=== PATIENT | female | born 1965 | race Caucasian/White ===

== ENCOUNTER 2022-02-14 16:46 | Emergency (ER) | payer OTHER ==
[~2022-02-14] VITALS: Ht 175.3 cm; Wt 132.4 kg
[2022-02-14 16:49] VITALS: BP 140/114
--- NOTE | 2022-02-14 16:50 | NUR ---
NOBLE ALS TO ER BED 8
--- NOTE | 2022-02-14 16:55 | NUR ---
56 y/o F BIBA for chest pain since 1600 at rest. Patient A&Ox4, nonambulatory, states 10/10, stabbing/dull/constant, radiating to left neck. Pt also states nausea, vomiting x 8 times. Per EMS, patient noted with AFib RVR @ HR 170-180 on scene. Vagal maneuvers attempted without success. Pt states she was seen at [facility] 1 wk in which she was cardioverted. Defibrillator to right upper chest. manager monitoring in place. Bed locked in lowest position, side rails x 1. Dr. Montelongo made aware. PMH: HF, Afib, pacemaker, depression, asthma, 3 NH's last 1 week ago, DVT L left, 3 cardiac stents Meds: digoxin, metoprolol, seroquel, oxybutynin Allergies: diltiazem, haldol, PCN, iodine, fentanyl, levequin Sx: 3 cardiac stents, pacemaker placement, appendectomy, cholecystectomy
[2022-02-14] MEDS ORDERED: METOPROLOL SUCCINATE 50 MG TABER PO SCH (17:00)
[2022-02-14] MEDS ORDERED: METOPROLOL 5 MG/5 ML VIAL IVP ONE ×2 (17:00→17:40)
[2022-02-14] MEDS ORDERED: NACL 0.9% 500 ML IV SCH (17:00)
--- NOTE | 2022-02-14 17:00 | NUR ---
Unable to obtain IV assess. Dr. Montelongo made aware for ultrasound guided IV.
--- NOTE | 2022-02-14 17:02 | NUR ---
EDGAR Navarro at bedside for US-guided IV
[2022-02-14] MEDS ORDERED: METOPROLOL 50 MG TAB ONE (17:10)
[2022-02-14] MEDS ORDERED: ONDANSETRON 4 MG/2 ML VIAL IVP ONE (17:40)
[2022-02-14] MEDS ORDERED: NITROGLYCERIN 0.4 MG TAB SL ONE (17:50)
[2022-02-14] MEDS ORDERED: MORPHINE SULFATE 4 MG/ML SYR IVP ONE ×2 (17:50→21:20)
[2022-02-14 18:26] LABS: BASOPHILS # (AUTO) 0.1 K/uL (0.00-0.22); BASOPHILS % (AUTO) 1.2 % (0.0-2.0); EOSINOPHILS # (AUTO) 0.1 K/uL (0-0.4); EOSINOPHILS % (AUTO) 0.7 % (0.0-4.0); HEMATOCRIT 43.5 % (36-48); HEMOGLOBIN 14.1 g/dL (12.0-16.0); LYMPHOCYTES # (AUTO) 2.6 K/uL (2.5-16.5); LYMPHOCYTES % (AUTO) 22.1 % (20.5-51.1); MEAN CORPUSCULAR HEMOGLOBIN 26 pg (27-31); MEAN CORPUSCULAR HGB CONC 32 g/dL (33-37); MONOCYTES # (AUTO) 0.7 K/uL (0.8-1.0); MONOCYTES % (AUTO) 5.9 % (1.7-9.3); NEUTROPHILS # (AUTO) 8.3 K/uL (1.8-7.7); NEUTROPHILS % (AUTO) 70.1 % (42.2-75.2); PLATELET COUNT (AUTO) 320 K/uL (140-450); RED BLOOD CELL COUNT(AUTO) 5.51 MIL/uL (4.20-5.40); RED CELL DISTRIBUTION WIDTH 19.8 % (11.6-13.7); WHITE BLOOD COUNT (AUTO) 11.9 K/uL (4.8-10.8)
[2022-02-14] MEDS ORDERED: FUROSEMIDE 40 MG/4 ML VIAL IVP ONE ×2 (18:35→20:00)
[2022-02-14 18:43] LABS: ALBUMIN 3.7 g/dL (3.4-5.0); ANION GAP 17.1 (8-16); CARBON DIOXIDE 24.5 mmol/L (21-32); CREATININE 1.6 mg/dL (0.6-1.3); POTASSIUM 4.6 mmol/L (3.5-5.1); TOTAL BILIRUBIN 0.9 mg/dL (0.0-1.0)
[2022-02-14 18:48] LABS: PROTHROMBIN TIME 11.2 secs (10.8-13.4)
--- NOTE | 2022-02-14 19:20 | NUR ---
Report and transfer of care given to LEISA Juarez.
[2022-02-14] MEDS ORDERED: diphenhydrAMINE 50 MG/ML VIAL IVP ONE (19:25)
--- NOTE | 2022-02-14 20:29 | NUR ---
PT IS RESTING. PAIN LEVEL 7/10 BACK PAIN. ON BEDSIDE MONITOR WITH HOB ELEVATED . SIDE RAILS UP X2 CALL LIGHT WITHIN REACH. BED AT LOWEST POSITION
--- NOTE | 2022-02-14 21:09 | NUR ---
PT IS RESTING PAIN LEVEL 7/10. RESP EVEN AND UNLABORED. DENIES CP OR SOB AT THIS TIME. ON BEDSIDE MONITOR. PT USING BEDSIDE COMMONDE. A&OX4. HOB ELEVATED. SKIN IS WARM PINK AND DRY. PENIDING TX TO YENY
--- NOTE | 2022-02-14 21:09 | NUR ---
COVID SWAB COLLECTED AND SENT
--- NOTE | 2022-02-14 21:50 | NUR ---
JACOB STOVALL STILL PENDING FOR [facility]
--- NOTE | 2022-02-14 22:36 | NUR ---
REPORT GIVEN TO ELIAN SPENCE AT [facility]. [facility] ETA [phone]
--- NOTE | 2022-02-15 00:34 | NUR ---
UPDATED [facility] ETA [phone]
[2022-02-15] MEDS ORDERED: DICYCLOMINE 20 MG/2 ML VIAL IM ONE ×2 (00:42→00:45)
--- NOTE | 2022-02-15 01:10 | NUR ---
PT COMPLIANTS OF DIARRHEA . MEDS GIVEN. TOLERATED WELL . PT ASKING TO GO OUTSIDE AND SMOKE. EXPLAINED NON SMOKING FACILITY AND EDUACATED PT ON HEALTH RELATED SMOKING ISSUES.
[2022-02-15 01:21] VITALS: BP 127/75
--- NOTE | 2022-02-15 01:21 | NUR ---
UPDATED [place] WITH CURRENT VITALS
--- NOTE | 2022-02-15 02:20 | NUR ---
Patient to be transferred to [facility]. Is being transferred due to HIGHER LEVEL OF CARE. Receiving facility has accepting physician and available space. ER physician has signed transfer form. Patient or responsible libertarian has agreed to transfer and signed form. Patient belongings inventoried and will be sent with patient. Copy of nursing notes, lab reports, EKG, Physicians Orders and X-rays to be sent with patient. Report called to ELIAN SPENCE at receiving facility. [facility] ambulance service has been called for transfer. ETA is 15 MINS.
--- NOTE | 2022-02-15 02:21 | NUR ---
The patient's care was reviewed and supervised by Aleah Valdez RN.
== END 2022-02-15 02:20 | disposition short-term general hospital (02) ==
LOC: MED 16:46
DX: I50.9 Heart failure, unspecified (principal); I25.2 Old myocardial infarction; N17.9 Acute kidney failure, unspecified; Z20.822 Contact with and (suspected) exposure to COVID-19; I25.10 Atherosclerotic heart disease of native coronary artery without angina pectoris; I48.91 Unspecified atrial fibrillation; F17.210 Nicotine dependence, cigarettes, uncomplicated; Z95.0 Presence of cardiac pacemaker; Z86.718 Personal history of other venous thrombosis and embolism; Z88.8 Allergy status to other drugs, medicaments and biological substances; Z88.0 Allergy status to penicillin; Z88.5 Allergy status to narcotic agent; Z88.1 Allergy status to other antibiotic agents
CPT/HCPCS: 36415; 71045; 80053; 82550; 82553; 83605; 83874; 83880; 84484; 85025; 85610; 85730; 87040; 87426; 93005; 96361; 96372; 96374; 96375; 99285; J0500; J1200; J1940; J2270; J2405; J3490; J7030; Q0092

== ENCOUNTER 2022-02-25 17:24 | Emergency (ER) | payer OTHER ==
[~2022-02-25] VITALS: Ht 182.9 cm; Wt 131.5 kg
[2022-02-25] MEDS ORDERED: NACL 0.9% 500 ML IV ONE (17:40)
[2022-02-25] MEDS ORDERED: NITROGLYCERIN 0.4 MG TAB SL ONE (17:40)
[2022-02-25] MEDS ORDERED: METOPROLOL 5 MG/5 ML VIAL IVP ONE (17:40)
--- NOTE | 2022-02-25 18:20 | NUR ---
PT RECEIVED, CARE ASSUMED. PT A/OX4. PT ANXIOUS WITH C/P RIGHT SIDE CHEST PAIN. CONNECTED TO TELE MONITOR: ST 143. PLACED PT ON 02 @ 2LPM VIA NC. AWAITING TO BE SEEN BY
[2022-02-25 18:29] LABS: BASOPHILS # (AUTO) 0.1 K/uL (0.00-0.22); EOSINOPHILS # (AUTO) 0.1 K/uL (0-0.4); EOSINOPHILS % (AUTO) 0.8 % (0.0-4.0); HEMATOCRIT 45.7 % (36-48); HEMOGLOBIN 14.6 g/dL (12.0-16.0); LYMPHOCYTES # (AUTO) 3.2 K/uL (2.5-16.5); MEAN CORPUSCULAR HEMOGLOBIN 26 pg (27-31); MEAN CORPUSCULAR HGB CONC 32 g/dL (33-37); MEAN CORPUSCULAR VOLUME 80.2 fL (80-94); MONOCYTES # (AUTO) 0.9 K/uL (0.8-1.0); MONOCYTES % (AUTO) 7.8 % (1.7-9.3); NEUTROPHILS # (AUTO) 7.1 K/uL (1.8-7.7); NEUTROPHILS % (AUTO) 62.4 % (42.2-75.2); PLATELET COUNT (AUTO) 355 K/uL (140-450); RED CELL DISTRIBUTION WIDTH 20.1 % (11.6-13.7); WHITE BLOOD COUNT (AUTO) 11.3 K/uL (4.8-10.8)
--- NOTE | 2022-02-25 18:49 | NUR ---
PT IS MORE CALM AT THIS TIME. GAVE PT WATER. 02 LEVEL AT THIS TIME WITH 2LPM VIA N/C IS 97%. WILL CONTINUE TO MONITOR
[2022-02-25 19:08] LABS: ALBUMIN 3.7 g/dL (3.4-5.0); ANION GAP 15.6 (8-16); CARBON DIOXIDE 28.1 mmol/L (21-32); CREATININE 1.6 mg/dL (0.6-1.3); POTASSIUM 4.7 mmol/L (3.5-5.1); TOTAL BILIRUBIN 0.7 mg/dL (0.0-1.0)
[2022-02-25 19:30] LABS: PROTHROMBIN TIME 11.4 secs (10.8-13.4)
--- NOTE | 2022-02-25 20:19 | NUR ---
PT RESTING IN BED WITH HOB ELEVATED. PT IS A&OX4. 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 DENIES SOB OR CP CURRENTLY. 9/10 PAIN CHRONIC BACK PAIN. BED AT LOWEST LEVEL SIDE RAILS UPX2. PENDING ADMISSION ORDERS
[2022-02-25] MEDS ORDERED: QUEtiapine FUMARATE 25 MG TAB PO STA (21:35)
--- NOTE | 2022-02-26 00:50 | NUR ---
PT WILL BE TRANSFERED TO [facility]
--- NOTE | 2022-02-26 01:51 | NUR ---
REPORT CALLED TO JULISSA AT [facility]. ETA IS [phone]
--- NOTE | 2022-02-26 02:43 | NUR ---
[facility] AT BEDSIDE FOR TRANSPORT
--- NOTE | 2022-02-26 02:50 | NUR ---
[facility] HERE TO TRANSPORT OUT PT TO [facility]
[2022-02-26 03:09] VITALS: BP 121/69
--- NOTE | 2022-02-26 03:13 | NUR ---
PT LEFT FOR [facility]
--- NOTE | 2022-02-26 03:14 | NUR ---
Patient to be transferred to [facility]. Is being transferred due to HIGHER LEVEL OF CARE. Receiving facility has accepting physician and available space. ER physician has signed transfer form. Patient or responsible democrat has agreed to transfer and signed form. Patient belongings inventoried and will be sent with patient. Copy of nursing notes, lab reports, EKG, Physicians Orders and X-rays to be sent with patient. Report called to JULISSA SPENCE at receiving facility. [facility] ambulance service has been called for transfer. ETA is 10 MINS .
--- NOTE | 2022-02-27 14:55 | NUR ---
LATE ENTRY- NS DISCONTINUED AT 0314.
== END 2022-02-26 03:13 | disposition short-term general hospital (02) ==
LOC: MED 17:24
DX: I48.20 Chronic atrial fibrillation, unspecified (principal); R07.9 Chest pain, unspecified; R06.02 Shortness of breath; R42 Dizziness and giddiness; J44.9 Chronic obstructive pulmonary disease, unspecified; I10 Essential (primary) hypertension; I25.2 Old myocardial infarction; Z95.0 Presence of cardiac pacemaker; Z88.0 Allergy status to penicillin; Z88.8 Allergy status to other drugs, medicaments and biological substances; Z88.5 Allergy status to narcotic agent; Z88.1 Allergy status to other antibiotic agents
CPT/HCPCS: 36415; 71045; 80053; 83880; 84484; 85025; 85610; 85730; 87426; 93005; 96361; 96374; 99285; J3490; J7030

== ENCOUNTER 2022-06-19 01:30 | Emergency (ER) | payer OTHER ==
[~2022-06-19] VITALS: Ht 185.4 cm; Wt 142.9 kg
--- NOTE | 2022-06-19 01:30 | NUR ---
PT W/C ASSISTED TO BED #8
[2022-06-19 01:35] VITALS: BP 138/87
[2022-06-19] MEDS ORDERED: ASPIRIN 325 MG TAB ONE (01:40)
--- NOTE | 2022-06-19 01:43 | NUR ---
Patient resting in bed, A/Ox4, chest rise and fall symmetrical, no s/s of distress, patient on monitor.
[2022-06-19] MEDS ORDERED: ASPIRIN 325 MG TAB PO ONE (01:45)
[2022-06-19] MEDS ORDERED: NITROGLYCERIN 2% 1 GM PKT TP ONE (01:45)
[2022-06-19] MEDS ORDERED: MORPHINE SULFATE 4 MG/ML SYR IVP ONE ×2 (01:45→05:45)
[2022-06-19] MEDS ORDERED: METOPROLOL 5 MG/5 ML VIAL IVP ONE (02:05)
[2022-06-19] MEDS ORDERED: METOPROLOL SUCCINATE 50 MG TABER PO ONE (02:10)
[2022-06-19] MEDS ORDERED: MORPHINE SULFATE 4 MG/ML SYR IM ONE (02:25)
[2022-06-19] MEDS ORDERED: LIDOCAINE MPF 1% 5 ML ONE (02:41)
--- NOTE | 2022-06-19 02:42 | NUR ---
ER Physician, Dr Monreal, starting central line. Addendum: 06/19/22 at 0243 by [id number] ER Physician, Dr Monreal, starting central line. Patient tolerating procedure well.
--- NOTE | 2022-06-19 03:04 | NUR ---
Humble, automotive refinish technician, at bedside performing chest xray.
--- NOTE | 2022-06-19 03:30 | NUR ---
Patient resting in bed, A/Ox4, chest rise and fall symmetrical, no c/o pain or s/s of distress, patient on monitor
[2022-06-19] MEDS ORDERED: METOPROLOL 5 MG/5 ML VIAL ONE (03:42)
[2022-06-19] MEDS ORDERED: LORazepam 2 MG/ML VIAL IVP ONE (03:45)
--- NOTE | 2022-06-19 04:00 | NUR ---
BLOOD OBTAINED AND WALKED TO LAB COVID SWAB COLLECTED AND SENT TO LAB
[2022-06-19 04:01] LABS: BASOPHILS % (AUTO) 0.4 % (0.0-2.0); HEMATOCRIT 38.1 % (36-48); HEMOGLOBIN 11.5 g/dL (12.0-16.0); LYMPHOCYTES # (AUTO) 3.1 K/uL (2.5-16.5); LYMPHOCYTES % (AUTO) 24.1 % (20.5-51.1); MEAN CORPUSCULAR HEMOGLOBIN 23 pg (27-31); MEAN CORPUSCULAR HGB CONC 30 g/dL (33-37); MEAN CORPUSCULAR VOLUME 77.4 fL (80-94); MONOCYTES # (AUTO) 1.5 K/uL (0.8-1.0); MONOCYTES % (AUTO) 11.6 % (1.7-9.3); NEUTROPHILS # (AUTO) 8.1 K/uL (1.8-7.7); NEUTROPHILS % (AUTO) 63.9 % (42.2-75.2); PLATELET COUNT (AUTO) 284 K/uL (140-450); RED BLOOD CELL COUNT(AUTO) 4.92 MIL/uL (4.20-5.40); RED CELL DISTRIBUTION WIDTH 22.1 % (11.6-13.7); WHITE BLOOD COUNT (AUTO) 12.7 K/uL (4.8-10.8)
--- NOTE | 2022-06-19 04:02 | NUR ---
Patient resting in bed, A/Ox4, chest rise and fall symmetrical, no c/o pain or s/s of distress, patient on monitor
[2022-06-19 04:25] LABS: ALBUMIN 3.4 g/dL (3.4-5.0); ANION GAP 19.3 (8-16); ASPARTATE AMINOTRANSFERASE 26 U/L (15-37); CARBON DIOXIDE 26.5 mmol/L (21-32); CHLORIDE 97 mmol/L (98-107); GFR ARICAN-AMERICAN 33 mL/min (>90); GLUCOSE 99 mg/dL (74-106); POTASSIUM 4.8 mmol/L (3.5-5.1); TOTAL BILIRUBIN 1.4 mg/dL (0.0-1.0); UREA NITROGEN, BLOOD 43 mg/dL (7-18)
[2022-06-19 04:28] LABS: SODIUM SERUM 138 mmol/L (136-145)
[2022-06-19] MEDS ORDERED: diphenhydrAMINE 50 MG/ML VIAL IVP ONE ×2 (04:30→05:55)
--- NOTE | 2022-06-19 05:56 | NUR ---
PERSONAL BELONGINGS COMPLETED
[2022-06-19] MEDS ORDERED: OXYB10TA2 PO (06:24)
[2022-06-19] MEDS ORDERED: QUET400T PO (06:24)
[2022-06-19] MEDS ORDERED: DIGO0.122 PO (06:24)
[2022-06-19] MEDS ORDERED: PRED1TAB2 PO (06:24)
[2022-06-19] MEDS ORDERED: APIX5TAB PO (06:24)
--- NOTE | 2022-06-19 06:49 | NUR ---
Patient resting in bed, A/Ox4, chest rise and fall symmetrical, no c/o pain or s/s of distress, patient on monitor
--- NOTE | 2022-06-19 07:22 | NUR ---
Change of shift report given to AM shift Nurse Effren RN. AM shift Nurse Effren RN verbalized understanding of report, no further questions.
[2022-06-19] MEDS ORDERED: ACETAMINOPHEN EXTRA STRENGTH 500 MG TAB PO ONE (07:45)
[2022-06-19 08:45] VITALS: BP 119/92
--- NOTE | 2022-06-19 08:49 | NUR ---
Patient Tranfers to outside Facility [facility] Physician: dr harding Location: [id number]
== END 2022-06-19 08:20 | disposition short-term general hospital (02) ==
LOC: MED 01:30
DX: I21.4 Non-ST elevation (NSTEMI) myocardial infarction (principal); I48.91 Unspecified atrial fibrillation; I20.9 Angina pectoris, unspecified; R07.9 Chest pain, unspecified; Z20.822 Contact with and (suspected) exposure to COVID-19; J44.9 Chronic obstructive pulmonary disease, unspecified; I25.2 Old myocardial infarction; I11.0 Hypertensive heart disease with heart failure; I50.9 Heart failure, unspecified; E11.9 Type 2 diabetes mellitus without complications; F17.200 Nicotine dependence, unspecified, uncomplicated; Z95.0 Presence of cardiac pacemaker; Z86.718 Personal history of other venous thrombosis and embolism; Z88.8 Allergy status to other drugs, medicaments and biological substances; Z88.0 Allergy status to penicillin; Z88.5 Allergy status to narcotic agent; Z88.1 Allergy status to other antibiotic agents
CPT/HCPCS: 36415; 36556; 71045; 80053; 84484; 85025; 87426; 96372; 96374; 96375; 96376; 99291; J1200; J2001; J2060; J2270; J3490; Q0092